=== PATIENT | female | born 1955 | race Caucasian/White ===

== ENCOUNTER 2016-07-06 14:40 | Emergency (ER) | payer OTHER ==
[~2016-07-06 14:40] MED LIST: BENADRYL25 MG PO; CEPHALEXIN500 MG PO; DIAZEPAM5 MG PO; FERROUS SULFAT325 MG PO; FLONASE 0.05% N16 GM; GABAPENTIN600 MG PO; HCTZ25 MG PO; LEVOTHYROXINE100 MCG PO; LIPITOR40 MG PO; LOTENSIN10 MG PO; METOPROLOL TART25 MG PO; NORCO 10-325 T1 EACH PO; PANTOPRAZOLE SO40 MG PO; SERTRALINE HCL50 MG PO; SUCRALFATE1 GM PO; SULFAMETHOXAZOLE1 EA PO; TRAMADOL HCL50 MG PO; TYLENOL325 M1 PO; VALIUM2 MG PO; ZOFRAN4 MG PO; ZYRTEC10 MG PO
[2016-07-06 15:20] LABS: BASO % 0.5 % (0.1-1.2); EOS # 0.2 10_X3_uL (0.0-0.4); EOS % 2.4 % (0.7-5.8); GRAN # 3.4 10_X3_uL (1.6-6.1); GRAN % 53.9 % (34.0-71.1); HEMATOCRIT 43.4 % (34-45); HEMOGLOBIN 13.8 g/dL (11.2-15.7); LYMPH # 2.2 10_X3_uL (1.2-3.7); MEAN CORPUSCULAR HEMOGLOBIN 30.9 pg (27.0-33.0); MEAN CORPUSCULAR HGB CONC 31.8 g/dL (32.0-36.0); MEAN CORPUSCULAR VOLUME 97.3 fL (79-95); MEAN PLATELET VOLUME 9.7 fl (7.5-11.5); MONO # 0.6 10_X3_uL (0.2-0.9); MONO % 9.2 % (4.7-12.5); PLATELET COUNT 255 x10_3/uL (182-369); RED BLOOD COUNT 4.46 x10_6/uL (3.9-5.2); RED CELL DISTRIBUTION WIDTH 14.7 % (11.7-14.4); WHITE BLOOD COUNT 6.3 x10_3/uL (4.0-10.0)
[2016-07-06 15:32] LABS: URINE BILIRUBIN NEGATIVE (NEGATIVE); URINE BLOOD TRACE (NEGATIVE); URINE GLUCOSE (UA) NORMAL (NORMAL); URINE KETONE NEGATIVE (NEGATIVE); URINE LEUKOCYTE ESTERASE 1+ (NEGATIVE); URINE NITRATE POSITIVE (NEGATIVE); URINE PROTEIN NEGATIVE (NEGATIVE)
[2016-07-06 15:38] LABS: ALBUMIN 3.9 gm/dL (3.4-5.0); ALKALINE PHOSPHATASE 124 U/L (50-136); ALT/SGPT 49 U/L (3.5-33.9); AST/SGOT 40 U/L (7.04-26.96); BILIRUBIN,TOTAL 0.42 mg/dL (0.0-1.0); BLOOD UREA NITROGEN 14 mg/dL (7-18); CARBON DIOXIDE 24 mmol/L (21-32); CREATINE KINASE 91 U/L (21-215); CREATININE 0.9 mg/dL (0.6-1.3); GLUCOSE,RANDOM 92 mg/dL (70-99); POTASSIUM 4.1 mmol/L (3.5-5.1); SODIUM 142 mmol/L (136-145); TOTAL PROTEIN 6.9 gm/dL (6.4-8.2)
[2016-07-06 15:47] LABS: URINE BACTERIA 3+ (NONE SEEN); URINE RBC 0-5 /[HPF] (0-2); URINE SQUAMOUS EPITHELIAL CELL 0-10 /[HPF] (NONE SEEN)
== END 2016-07-06 16:29 | disposition home or self-care (01) ==
LOC: ER 14:40
PROVIDERS: Internal Medicine
DX: M79.604 Pain in right leg (principal); N39.0 Urinary tract infection, site not specified; R07.9 Chest pain, unspecified; E07.9 Disorder of thyroid, unspecified; W17.89XA Other fall from one level to another, initial encounter; Y92.481 Parking lot as the place of occurrence of the external cause; R00.1 Bradycardia, unspecified; R00.2 Palpitations
CPT/HCPCS: 36415; 73502; 73552; 73610; 80053; 81001; 82550; 82553; 85025; 87086; 87186; 93005; 99285-25